=== PATIENT | female | born 1975 | race Caucasian/White ===

== ENCOUNTER 2022-01-04 19:11 | Emergency (ER) | payer OTHER, SELFPAY ==
[2022-01-04 19:18] VITALS: BP 136/78; PULSE 104; RESP 18; TEMP 36.6; O2SAT 99
--- NOTE | 2022-01-04 19:47 | PC.NURSE ---
patient states that she is going home. left ED at this time.
== END 2022-01-04 20:12 | disposition left against medical advice (07) ==
LOC: ANHED 20:01
DX: U07.1 COVID-19 (principal)
CPT/HCPCS: 99199

== ENCOUNTER 2025-07-06 08:18 | Outpatient (CLI) | payer OTHER, SELFPAY ==
--- NOTE | ~2025-07-06 | MM_ITS ---
EXAMINATION: MM screening myron BI w kody HISTORY: Screening. TECHNIQUE: Craniocaudal and mediolateral oblique 3-D tomosynthesis images were obtained and synthetic 2-D images were generated. CAD analysis was submitted and interpreted. COMPARISON: None available. BREAST PARENCHYMAL COMPOSITION: Dense: The breasts are heterogeneously dense FINDINGS: No suspicious masses are seen. There are no suspicious calcifications. No unexplained architectural distortion is seen. There are no skin or nipple abnormalities identified. There is no adenopathy seen on the images submitted. IMPRESSION: No mammographic evidence to suggest malignancy is seen. The patient may return to screening mammography as per ACR guidelines. BI-RADS 1 - Negative. Reviewed, dictated and finalized at location B. [employer] LANGUAGE INTERPRETER
--- OUTSIDE RECORDS SUMMARY | 2025-07-06 08:33 | XMS_ITS | Clinical Summary ---
Author Organization [facility] Address [address] [place] [address] Care Team Providers Care Last Repairer Helper Name Role Phone Waqar Salinas MD Primary Care Provider [phone] Allergies No known active allergies Medications diclofenac sodium (VOLTAREN) 1 % gel Apply 2 g topically as needed 1 Active amLODIPine (NORVASC) 5 mg tabletIndicatio ns:hypertension Take 1 tablet (5 mg total) by mouth every morning 2 Active ezetimibe (ZETIA) 10 mg tabletIndicatio ns:hyperlipidem ia Take 1 tablet (10 mg total) by mouth every morning 2 Active FeroSuL 325 mg (65 mg iron) tabletIndicatio ns:Iron Deficiency Anemia Take 1 tablet (325 mg total) by mouth 2 (two) times a week 2 Active albuterol HFA (PROVENTIL HFA,VENTOLIN HFA,PROAIR HFA) 90 mcg/actuation inhaler Inhale 2 puffs every 6 (six) hours as needed for wheezing Active acetaminophen 500 mg capsuleIndicati ons:Pain Take 2 capsules (1,000 mg total) by mouth every 6 (six) hours 60 tablet 3 Active cyclobenzaprine (FLEXERIL) 10 mg tablet Take 1 tablet (10 mg total) by mouth 3 (three) times a day as needed for muscle spasms for up to 10 days 30 tablet 3 Active oxyCODONE (ROXICODONE) 5 mg immediate release tabletIndicatio ns:Pain Take 1-2 tablets (5-10 mg total) by mouth every 4 (four) hours as needed for pain 40 tablet 3 Active Additional Information Patient not taking.Reported on 11/14/2024 buPROPion XL (WELLBUTRIN XL) 300 mg 24 hr tablet Take 1 tablet (300 mg total) by mouth every morning 5 Active metoprolol tartrate (LOPRESSOR) 25 mg immediate release tablet Take 1 tablet (25 mg total) by mouth 2 (two) times a day 5 Active lamoTRIgine (LaMICtal) 100 mg tablet Take 1 tablet (100 mg total) by mouth daily 5 Active lisinopril-hydr oCHLOROthiazide (ZESTORETIC) 20-12.5 mg per tablet Take 1 tablet by mouth daily 5 Active aspirin 81 mg chewable tablet Take 1 tablet (81 mg total) by mouth daily 5 Active ARIPiprazole (ABILIFY) 2 mg tablet Take 1 tablet (2 mg total) by mouth nightly 5 Active Anoro Ellipta 62.5-25 mcg/actuation blister with device Inhale 1 puff daily 5 Active Active Problems Problem Noted Date Diagnosed Date 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 Family history of aortic dissection 11/13/2024 Tear of left rotator cuff 08/22/2022 Overview (08/22/2022): Added automatically from request for surgery [id number] HTN (hypertension) 11/04/2020 Risk factors for obstructive sleep apnea 021 Nontraumatic complete tear of right rotator cuff 10/19/2020 Overview (10/19/2020): Added automatically from request for surgery [id number] Full thickness rotator cuff tear 08/19/2020 Nausea 08/16/2016 Overview (11/09/2016): Nausea Encounters Date Type Department Care Team Description 04/30/2025 Telephone [facility] Medicine Cardiology [address] [place] [address] [place] [id number] Derrell Rothman MD f/u of genetic testing 04/16/2025 Telephone [facility] Cardiology [address] [facility] [address] [place] [address] Derrell Rothman MD genetic testing from Last 3 Months Surgical History Surgery Date Site/Laterality Comments CHOLECYSTECTOMY 08/06/2010 - 08/05/2011 SECTION 1999, 2001 CARPAL TUNNEL RELEASE 08/06/2013 - 08/05/2014 Bilateral REVERSE TOTAL SHOULDER ARTHROPLASTY 08/06/2021 - 08/05/2022 Right Medical History Medical History Date Comments HTN (hypertension) Seasonal allergies Family History Medical History Relation Name Comments Heart attack Father Stroke Maternal Grandfather Anesthesia problems Neg Hx Relation Name Status Comments Father Maternal Grandfather Social History Tobacco Use Types Packs/Day Years Used Date Smoking Tobacco: Every Day Cigarettes 0.5 36.9 Started: 1988 Smokeless Tobacco: Never Tobacco Cessation:Ready to Q uit: Not Asked; Counseling Given: Not Answered AUDIT-C Answer Date Recorded Q1: How often do you have a drink containing alc ohol? Monthly or less 09/04/2022 Q2: How many drinks containi ng alcohol do you have on a typical day when you are drinking? 1 or 2 09/04/2022 Q3: How often do you have si x or more drinks on one occasion? 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 Gender Identity Not on file Sexual Orientation Not on file Last Filed Vital Signs Vital Sign Reading Time Taken Comments Blood Pressure 143/86 11/14/2024 9:47 AM CDT Pulse 51 11/14/2024 9:47 AM CDT Temperature 36 C (96.8 F) 09/04/2022 1:29 PM CORONARY CLINICAL SPECIALIST Respiratory Rate 16 09/04/2022 3:15 PM CORONARY CLINICAL SPECIALIST Oxygen Saturation 94% 11/14/2024 9:47 AM CDT Inhaled Oxygen Concentration - - Weight 89.2 kg (196 lb 9.6 oz) 11/14/2024 9:47 A M CDT Height 165.1 cm (5' 5) 11/14/2024 9:47 AM CDT Body Mass Index 32.72 11/14/2024 9:47 AM CDT Plan of Treatment Health Maintenance Due Date Last Done Comments Breast Cancer Screening-Mammogram 1975 Cervical Cancer Screening 1975 Colon Cancer Screening-Colonoscopy 1975 Depression Screening 1975 Hepatitis C Screening 1975 DTaP/Tdap/Td Vaccine (1 - Tdap) 11/05/1986 Hepatitis B Screening 11/05/1993 Regular Well Visit/Exam 18-64 11/05/1993 Pneumococcal vaccine <65 (1 of 2 - PCV) 11/05/1994 Influenza Vaccine (#1) 2025 06/13/2021, 2018 Medical Devices Implanted Type Area Helper Teacher Device Identifier Shelf Expiration Date Model / Serial / Lot [employer]alyticni[employer]Tagg [id number] Tornier Aequalis Perform 25mm Reverse Shoulder Standard Baseplate - [id number] - [id number] Implanted:Qty: 1 on 11/10/2020 by Sammy Ruiz MD at [facility] [employer] [id number] 07/20/2025 [id number] / [id number] / [id number] Bleacher Report [id number] Tornier Aequalis Perform 36mm Lateralize Reverse Shoulder +3mm - [id number] - [id number] Implanted:Qty: 1 on 11/10/2020 by Sammy Ruiz MD at [facility] [employer] [id number] 05/18/2025 [id number] / [id number] / [id number] [employer] [id number] Aequalis Perform Reversed Od6.5 Mm L40 Mm Central Glenoid Screw Baseplate Nonsterile - [id number] Implanted:Qty: 1 on 11/10/2020 by Sammy Ruiz MD at [facility] [employer] [id number] / / 0 [employer] [id number] Aequalis Perform Reversed 5mm 22mm Peripheral Glenoid Screw - [id number] Implanted:Qty: 1 on 11/10/2020 by Sammy Ruiz MD at [facility] [employer] [id number] / / 0 Tornier Inc [id number] Aequalis Perform Reversed 5mm 26mm Peripheral Glenoid Screw - [id number] Implanted:Qty: 1 on 11/10/2020 by Sammy Ruiz MD at [facility] [employer] [facility] [id number] / / 0 [employer] [facility] [id number] Stem Perform Sz 2 Humeral - [id number] Implanted:Qty: 1 on 11/10/2020 by Sammy Ruiz MD at [facility] [employer] [facility] [id number] / / [id number] [employer] [facility] [id number] Insert Perform [id number] - [id number] Implanted:Qty: 1 on 11/10/2020 by Sammy Ruiz MD at [facility] [employer] [facility] [id number] / / [id number] [employer] Fibertak Fiberwire 1.3mm Tape Braid Rotator Cuff Flat Nocona Ar-3632 - [id number] Implanted:Qty: 1 on 09/04/2022 by Sammy Ruiz MD at [facility] Left: Shoulder [employer] 01/03/2027 AR-3632 / / [id number] [employer] Swivelock C 4.75mm 19.1mm Closed Eyelet Vent Nocona Suture Ar-2324bcc - [id number] Implanted:Qty: 1 on 09/04/2022 by Sammy Ruiz MD at [facility] Left: Shoulder [employer] 07/05/2026 AR-2324BC C / / [id number] [employer] Swivelock C 4.75mm 19.1mm Closed Eyelet Vent Nocona Suture Ar-2324bcc - [id number] Implanted:Qty: 1 on 09/04/2022 by Sammy Ruiz MD at [facility] Left: Shoulder [employer] 04/05/2026 AR-2324BC C / / [id number] [employer] Fiberloop 3.2mm Drill Pin Needle [facility] Cannula Kit Suture Ar-2290 - [id number] Implanted:Qty: 1 on 09/04/2022 by Sammy Ruiz MD at [facility] Left: Shoulder [employer] 05/05/2027 AR-2290 / / [id number] [employer] Fibertak Fiberwire 1.3mm Tape Braid Rotator Cuff Flat Nocona Ar-3632 - [id number] Implanted:Qty: 1 on 09/04/2022 by Sammy Ruiz MD at [facility] Left: Shoulder [employer] 03/05/2027 AR-3632 / / [id number] [employer] Fibertak Fiberwire 1.3mm Tape Braid Rotator Cuff Flat Nocona Ar-3632 - [id number] Implanted:Qty: 1 on 09/04/2022 by Sammy Ruiz MD at [facility] Left: Shoulder [employer] 03/05/2027 AR-3632 / / [id number] Insurance [facility] Advance Directives For more information, please contact: [phone] * Full Code (Latest Code Status on File) Date Activated Date Inactivated Comments 11/10/2020 11:25 AM 11/11/2020 2:15 PM Care Teams Last Repairer Helper Relationship Specialty Start Date End Date Waqar Salinas MD [address] [place] [address] PCP - General Internal Medicine 06/18/24
--- OUTSIDE RECORDS SUMMARY | 2025-07-06 08:33 | XMS_ITS | Clinical Summary ---
Author Organization [facility] Address [address] [place] [address] Care Team Providers Care Support Manager Name Role Phone Felix Lorenzo Primary Care Provider + Source Comments [facility],non-owned Affiliates and Associated Physician Practices is amultiple site organization consisting of ambulatory clinics and hospital sitesin [place], [place], [place] and [place]. This disclosure is being madepursuant to the Care Everywhere program and may not contain all information available regarding this patient. 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 Gender Identity Not on file Sexual Orientation Not on file Plan of Treatment Health Maintenance Due Date Last Done Comments COLOGUARD (AGES 45-75) - COL ON CA SCREENING 1975 COLON MONITORING 1975 COLONOSCOPY - COLON CA SCREENING 1975 CT COLONOGRAPHY - COLON CA SCREENING 1975 Colorectal Cancer Screening 1975 FIT - COLON CA SCREENING 1975 FLEX SIG - COLON CA SCREENING 1975 LIPID TESTING 1975 MAMMOGRAM 1975 HIV SCREENING 11/05/1990 HEPATITIS C SCREENING 11/01/1993 DTAP/TDAP/TD VACCINES (1 - Tdap) 11/05/1994 HEPATITIS B VACCINE (1 of 3 - 19+ 3-dose series) 11/05/1994 PAP SMEAR 11/05/1996 Cervical Cancer Screening 11/05/2005 PAP with HPV 11/05/2005 DEPRESSION SCREENING 08/06/2024 COVID-19 VACCINE (2024-2 6 season) 2025 INFLUENZA VACCINE (#1) 2025 ZOSTER VACCINE (1 of 2) 11/05/2025 HIB VACCINE Aged Out No longer eligi ble based on patient's age to complete this topic HPV VACCINE Aged Out No longer eligi ble based on patient's age to complete this topic MENINGOCOCCAL (Group B) VACC INE SHARED DECISION-MAKING Aged Out No longer eligibl e based on patient's age to complete this topic MENINGOCOCCAL GROUPS A/C/Y/W VACCINE Aged Out No longer eligible b ased on patient's age to complete this topic [place] [address] [place] [address] Care Teams Support Manager Relationship Specialty Start Date End Date Felix Lorenzo PA [address] [place] [id number] PCP - General 10/27/21
== END 2025-07-06 08:19 | disposition home or self-care (01) ==
PROVIDERS: PCP Internal Medicine; Visit Provider Student in an Organized Health Care Education/Training Program
DX: Z12.31 Encounter for screening mammogram for malignant neoplasm of breast (principal)
CPT/HCPCS: 77063; 77067